=== PATIENT | male | born 1960 | race American Indian/Alaskan Native ===

== ENCOUNTER 2018-07-12 10:00 | Outpatient (CLI) | payer OTHER ==
--- NOTE | 2018-07-12 10:49 | XRay Report ---
RIGHT KNEE RADIOGRAPHS INDICATION: Arm numbness, spine, neck and back pain, nerve pain in feet. COMPARISON: None similar at this institution. FINDINGS: AP and lateral right knee radiographs demonstrate intact articulation. Subtle bipartite patella not entirely excluded superolaterally. Minimal atherosclerotic vascular calcifications. No suprapatellar effusion. CONCLUSION: No acute right knee radiographic abnormality, as described. Thank you for the opportunity to participate in this patient's care.
--- NOTE | 2018-07-12 10:51 | XRay Report ---
LUMBAR SPINE RADIOGRAPHS INDICATION: Arm numbness, spine, neck and back pain, nerve pain in feet. COMPARISON: None similar. FINDINGS: AP and lateral lumbar spine radiographs demonstrate preserved vertebral body stature, alignment and disc heights. Mild multilevel spinal degenerative spurring from L2-L5. Lower lumbar facet arthropathy. Normal imaged SI and hip articulations with slight degenerative changes possible. Few pelvic phleboliths. Nonobstructive bowel gas pattern. CONCLUSION: No acute radiographic abnormality with few bony degenerative changes, as above. Thank you for the opportunity to participate in this patient's care.
--- NOTE | 2018-07-12 11:50 | XRay Report ---
CERVICAL SPINE RADIOGRAPHS INDICATION: Arm numbness, spine, neck and back pain, nerve pain in feet. COMPARISON: None similar. FINDINGS: AP, lateral and open-mouth views of the cervical spine demonstrate partly obscured dens superiorly due to overlying structures. Remainder imaged dens and lateral masses appear within normal limits. Intact craniocervical articulation on the lateral view with normal prevertebral soft tissues and airway. Normal vertebral body stature. Slight 1 mm retrolisthesis may be present at the levels between C3 and C6. Moderate to severe C5-C6 disc narrowing. Remainder disc heights fairly preserved. C4-C6 degenerative spurring also noted. Clear visualized lung apices. Mild left carotid atherosclerotic calcifications. CONCLUSION: Cervical spondylosis, greatest at C5-C6, as detailed above. Thank you for the opportunity to participate in this patient's care.
== END 2018-07-12 10:01 | disposition home or self-care (01) ==
LOC: XRAY 10:00
PROVIDERS: ATTEND Internal Medicine
DX: M47.812 Spondylosis without myelopathy or radiculopathy, cervical region (principal); M48.02 Spinal stenosis, cervical region; M46.06 Spinal enthesopathy, lumbar region; I65.22 Occlusion and stenosis of left carotid artery
CPT/HCPCS: 72040; 72100